=== PATIENT | female | born 1975 | race African-American/Black ===

== ENCOUNTER 2019-05-16 08:48 | Inpatient (IN) ==
[2019-05-16 10:20] LABS: Basophils % 1.3 % (0.0-0.8); Eosinophils # 0.1 10*3/uL (0.0-0.87); Eosinophils % 6.4 % (0.00-10.9); Hematocrit 29.3 VOL% (35.7-47.0); Immature Granulocytes % 1.3 %; Immature Granulocytes Absolute 0.01 #; Lymphocytes # 0.2 10*3/uL (1.4-4.0); Lymphocytes % 26.9 % (21.3-54.2); Mean Corpuscular HGB Conc 34.1 GM/DL (32-36); Mean Corpuscular Volume 78.3 FL (87-102); Mean Platelet Volume 9.8 FL (9.6-12.0); Monocytes % 2.6 % (1.7-12.7); Neutrophils % 61.5 % (38.7-73.9); Platelet Count 142 T/CUMM (130-400); Red Blood Count 3.74 MC/CUMM (3.8-5.5); Red Cell Distribution Width 17.3 % (9.3-17.3)
[2019-05-16 10:23] LABS: White Blood Count 0.8 T/CUMM (4-12)
[2019-05-16] MEDS ORDERED: CEFEPIME 1,000 MG in SODIUM CHLORIDE 0.9% 100 ML IV STA (10:26)
[2019-05-16 10:27] LABS: Apearance,Urine CLEAR (Clear); Bilirubin,Urine Negative (Negative); Blood, Urine Negative (Negative); Glucose,Urine (UA) Negative (Negative); Ketones,Urine Negative (Negative); Mucus,Urine Occasional /LPF (Occasional); Nitrite,Urine Negative (Negative); Protein,Urine Negative; Squamous Epithelial Cell,Urine Occasional /HPF (0-10); Urine Color Yellow (Yellow); Urine Specific Gravity 1.013 (1.001-1.035); Urine Urobilinogen < 2.0 EU/DL (0.2-1.0); WBC,Urine <1 /HPF (0-6)
[2019-05-16] MEDS ORDERED: AZITHROMYCIN 250 MG TABLET PO STA (10:27)
[2019-05-16 10:38] LABS: Albumin 3.1 G/DL (3.4-5.0); Bilirubin,Total 0.4 MG/DL (0.2-1.0); Calcium 8.8 MG/DL (8.5-10.1); Osmolality,Calculated 265.5 MOS/KG (273-304); Total Protein 7.1 G/DL (6.4-8.3)
[2019-05-16 10:39] LABS: Hypochromasia 1+; Lymphocytes 47 % (20-55); Platelet Estimate Adequate; Segmented Neutrophils 53 % (50-85); Total Cells Counted 100
[2019-05-16] MEDS: ENOXAPARIN 40 MG/0.4 ML SYRINGE SUBCUT SCH (14:56)
[2019-05-16] MEDS ORDERED: FILGRASTIM-SNDZ 480 MCG/0.8 ML SYRINGE SUBCUT ONE (15:00)
[2019-05-16] MEDS: CEFEPIME 1,000 MG in SODIUM CHLORIDE 0.9% 100 ML IV SCH ×2 (16:05→22:10)
[2019-05-16] MEDS: SODIUM CHLORIDE 0.9% 1,000 ML IV SCH (16:06)
[2019-05-16 16:37] LABS: Albumin 3.2 G/DL (3.4-5.0); Bilirubin,Direct 0.13 MG/DL (0.0-0.20); Bilirubin,Indirect 0.4 MG/DL (0.0-1.0); Bilirubin,Total 0.5 MG/DL (0.2-1.0); Ferritin 2332.5 ng/ml (8-252); Total Protein 7.2 G/DL (6.4-8.3)
[2019-05-16] MEDS ORDERED: BENZTROPINE 2 MG/2 ML AMP IV PRN (17:14)
[2019-05-16] MEDS ORDERED: chlorproMAZINE 25 MG TABLET PO PRN (17:14)
[2019-05-16] MEDS ORDERED: chlorproMAZINE INJ 50 MG in SODIUM CHLORIDE 0.9% 100 ML IV PRN (17:14)
[2019-05-16] MEDS ORDERED: LACTULOSE 20 GM/30 ML UDCUP PO PRN (17:14)
[2019-05-16] MEDS ORDERED: ALUMINUM/MAGNES/SIMETH MAX STR 30 ML UDCUP PO PRN (17:14)
[2019-05-16] MEDS ORDERED: diphenhydrAMINE CAP 25 MG CAPSULE PO PRN (17:14)
[2019-05-16] MEDS ORDERED: LOPERAMIDE 2 MG CAPSULE PO PRN ×2 (17:14)
[2019-05-16] MEDS ORDERED: MAGNESIUM HYDROXIDE SUSP 30 ML UDCUP PO PRN (17:14)
[2019-05-16] MEDS ORDERED: chlorproMAZINE INJ 25 MG in SODIUM CHLORIDE 0.9% 100 ML IV PRN (17:14)
[2019-05-16] MEDS ORDERED: TEMAZEPAM 7.5 MG CAPSULE PO PRN (17:14)
[2019-05-16] MEDS ORDERED: MYLANTA/LIDO VISC 2:1 300 ML BOTTLE SWISH/SPIT PRN (17:14)
[2019-05-16] MEDS ORDERED: MYLANTA/LIDO VISC 2:1 300 ML BOTTLE SWISH/SWAL PRN (17:14)
[2019-05-16] MEDS: ONDANSETRON 4 MG/2 ML VIAL IV PRN (18:36)
[2019-05-16] MEDS: traMADol 50 MG TABLET PO PRN (21:00)
[2019-05-16] MEDS ORDERED: FLUORIDE PO SCH (21:00)
[2019-05-16] MEDS: ACETAMINOPHEN 325 MG TABLET PO PRN (21:00)
[2019-05-17] MEDS: SODIUM CHLORIDE 0.9% 1,000 ML IV SCH ×3 (00:10→16:48)
[2019-05-17] MEDS: CEFEPIME 1,000 MG in SODIUM CHLORIDE 0.9% 100 ML IV SCH ×4 (04:01→21:18)
[2019-05-17 06:03] LABS: Basophils % 1.7 % (0.0-0.8); Eosinophils # 0.1 10*3/uL (0.0-0.87); Eosinophils % 12.1 % (0.00-10.9); Hemoglobin 8.6 GM/DL (12.0-16.0); Lymphocytes # 0.2 10*3/uL (1.4-4.0); Lymphocytes % 37.9 % (21.3-54.2); Mean Corpuscular HGB Conc 33.1 GM/DL (32-36); Mean Corpuscular Volume 79.3 FL (87-102); Mean Platelet Volume 10.4 FL (9.6-12.0); Monocytes % 3.4 % (1.7-12.7); Neutrophils % 44.9 % (38.7-73.9); Platelet Count 108 T/CUMM (130-400); Red Blood Count 3.28 MC/CUMM (3.8-5.5); Red Cell Distribution Width 17.2 % (9.3-17.3)
[2019-05-17 06:09] LABS: White Blood Count 0.6 T/CUMM (4-12)
[2019-05-17 06:31] LABS: Eosinophils 20 % (0-10); Lymphocytes 40 % (20-55); Segmented Neutrophils 40 % (50-85); Total Cells Counted 100
[2019-05-17 06:32] LABS: Anisocytosis 1+; Hypochromasia 1+; Ovalocytes Slight; Target Cells Slight
[2019-05-17 06:33] LABS: Platelet Estimate Decreased
[2019-05-17 06:36] LABS: Albumin 2.7 G/DL (3.4-5.0); Bilirubin,Total 0.4 MG/DL (0.2-1.0); Calcium 8.1 MG/DL (8.5-10.1); Osmolality,Calculated 265.4 MOS/KG (273-304); Total Protein 6.2 G/DL (6.4-8.3)
[2019-05-17] MEDS: AZITHROMYCIN 250 MG TABLET PO SCH (08:34)
[2019-05-17] MEDS: PANTOPRAZOLE 40 MG TABLET PO SCH (08:34)
[2019-05-17] MEDS: ACETAMINOPHEN 325 MG TABLET PO PRN ×3 (08:37→17:43)
[2019-05-17] MEDS: ENOXAPARIN 40 MG/0.4 ML SYRINGE SUBCUT SCH (14:53)
[2019-05-17] MEDS: FILGRASTIM-SNDZ 480 MCG/0.8 ML SYRINGE SUBCUT SCH (16:11)
[2019-05-17] MEDS: ZALEPLON 5 MG CAPSULE PO PRN (22:15)
[2019-05-18] MEDS: ACETAMINOPHEN 325 MG TABLET PO PRN ×3 (00:30→11:07)
[2019-05-18] MEDS: SODIUM CHLORIDE 0.9% 1,000 ML IV SCH ×2 (01:15→12:38)
[2019-05-18] MEDS: CEFEPIME 1,000 MG in SODIUM CHLORIDE 0.9% 100 ML IV SCH ×3 (03:15→15:29)
[2019-05-18] MEDS: ONDANSETRON 4 MG/2 ML VIAL IV PRN ×3 (04:30→17:07)
[2019-05-18 05:29] LABS: Basophils % 3.1 % (0.0-0.8); Eosinophils # 0.1 10*3/uL (0.0-0.87); Eosinophils % 21.9 % (0.00-10.9); Hemoglobin 11.5 GM/DL (12.0-16.0); Lymphocytes # 0.1 10*3/uL (1.4-4.0); Lymphocytes % 31.3 % (21.3-54.2); Mean Corpuscular HGB Conc 33.8 GM/DL (32-36); Mean Corpuscular Volume 77.3 FL (87-102); Mean Platelet Volume 10.8 FL (9.6-12.0); Monocytes % 9.4 % (1.7-12.7); Neutrophils % 34.3 % (38.7-73.9); Red Cell Distribution Width 17.4 % (9.3-17.3)
[2019-05-18 05:44] LABS: Calcium 8.1 MG/DL (8.5-10.1); Osmolality,Calculated 267.1 MOS/KG (273-304); White Blood Count 0.3 T/CUMM (4-12)
[2019-05-18 05:45] LABS: Platelet Count 42 T/CUMM (130-400)
[2019-05-18 06:04] LABS: Band Neutrophils 12 % (0-10); Eosinophils 40 % (0-10); Lymphocytes 16 % (20-55); Platelet Estimate Decreased; Segmented Neutrophils 16 % (50-85); Total Cells Counted 100
[2019-05-18 06:06] LABS: Anisocytosis 1+
[2019-05-18] MEDS: PANTOPRAZOLE 40 MG TABLET PO SCH (08:39)
[2019-05-18] MEDS: AZITHROMYCIN 250 MG TABLET PO SCH (08:39)
[2019-05-18] MEDS: FILGRASTIM-SNDZ 480 MCG/0.8 ML SYRINGE SUBCUT SCH (08:39)
[2019-05-18] MEDS: ALPRAZolam 0.25 MG TABLET PO PRN ×2 (10:19→17:58)
[2019-05-18] MEDS: ENOXAPARIN 40 MG/0.4 ML SYRINGE SUBCUT SCH (15:29)
[2019-05-18] MEDS: DICLOFENAC 1% GEL 100 GM TUBE TOP SCH ×2 (15:29→21:00)
[2019-05-18] MEDS: PROMETHAZINE INJ 25 MG in SODIUM CHLORIDE 0.9% 50 ML IV PRN (17:58)
[2019-05-19] MEDS: ALPRAZolam 0.25 MG TABLET PO PRN ×5 (00:10→21:40)
[2019-05-19] MEDS ORDERED: PROMETHAZINE 25 MG/1 ML VIAL IM PRN (01:20)
[2019-05-19] MEDS: SODIUM CHLORIDE 0.9% 1,000 ML IV SCH ×5 (04:52→23:16)
[2019-05-19] MEDS: CEFEPIME 1,000 MG in SODIUM CHLORIDE 0.9% 100 ML IV SCH ×5 (04:53→21:37)
[2019-05-19] MEDS: PANTOPRAZOLE 40 MG TABLET PO SCH (08:40)
[2019-05-19] MEDS: AZITHROMYCIN 250 MG TABLET PO SCH (08:40)
[2019-05-19] MEDS: ACETAMINOPHEN 325 MG TABLET PO PRN ×2 (08:41→21:40)
[2019-05-19] MEDS: FILGRASTIM-SNDZ 480 MCG/0.8 ML SYRINGE SUBCUT SCH (08:41)
[2019-05-19] MEDS: guaiFENesin 200 MG/10 ML UDCUP PO PRN (08:41)
[2019-05-19] MEDS: DICLOFENAC 1% GEL 100 GM TUBE TOP SCH ×3 (09:42→23:15)
[2019-05-19 11:44] LABS: Alanine Aminotransferase 18 U/L (13-56); Albumin 2.4 G/DL (3.4-5.0); Alkaline Phosphatase 60 U/L (45-117); Aspartate Amino Transferase 42 U/L (0-37); Bilirubin,Direct < 0.100 MG/DL (0.0-0.20); Bilirubin,Indirect 0.3 MG/DL (0.0-1.0); Bilirubin,Total < 0.39 MG/DL (0.2-1.0); Blood Urea Nitrogen 5 MG/DL (7-18); Calcium 7.9 MG/DL (8.5-10.1); Estimated Glom Filtration Rate 96 ML/MIN; Ferritin 1173.4 ng/ml (8-252); Glucose 101 MG/DL (74-106); Osmolality,Calculated 266.1 MOS/KG (273-304); Total Protein 6.2 G/DL (6.4-8.3)
[2019-05-19 12:33] LABS: Basophils % 1.4 % (0.0-0.8); Eosinophils # 0.1 10*3/uL (0.0-0.87); Eosinophils % 2.8 % (0.00-10.9); Hematocrit 22.1 VOL% (35.7-47.0); Hemoglobin 7.6 GM/DL (12.0-16.0); Immature Granulocytes % 5.9 %; Immature Granulocytes Absolute 0.17 #; Lymphocytes # 0.2 10*3/uL (1.4-4.0); Lymphocytes % 6.6 % (21.3-54.2); Mean Corpuscular HGB Conc 34.4 GM/DL (32-36); Mean Corpuscular Volume 77.3 FL (87-102); Monocytes % 7.3 % (1.7-12.7); Platelet Count 89 T/CUMM (130-400); Red Blood Count 2.86 MC/CUMM (3.8-5.5); Red Cell Distribution Width 17.5 % (9.3-17.3); White Blood Count 2.9 T/CUMM (4-12)
[2019-05-19 13:17] LABS: Band Neutrophils 3 % (0-10); Eosinophils 3 % (0-10); Hypersegmented Neutrophil Few; Lymphocytes 10 % (20-55); Platelet Estimate Decreased; Segmented Neutrophils 78 % (50-85); Total Cells Counted 102
[2019-05-19] MEDS: ZALEPLON 5 MG CAPSULE PO PRN (21:30)
[2019-05-20] MEDS: ACETAMINOPHEN 325 MG TABLET PO PRN ×4 (00:52→22:50)
[2019-05-20] MEDS: CEFEPIME 1,000 MG in SODIUM CHLORIDE 0.9% 100 ML IV SCH ×4 (05:44→20:00)
[2019-05-20 05:54] LABS: Basophils # 0.1 10*3/uL (0.0-0.2); Basophils % 1.2 % (0.0-0.8); Eosinophils # 0.1 10*3/uL (0.0-0.87); Eosinophils % 1.3 % (0.00-10.9); Hematocrit 23.3 VOL% (35.7-47.0); Hemoglobin 7.8 GM/DL (12.0-16.0); Immature Granulocytes % 8.3 %; Immature Granulocytes Absolute 0.56 #; Lymphocytes # 0.4 10*3/uL (1.4-4.0); Lymphocytes % 6.4 % (21.3-54.2); Mean Corpuscular HGB Conc 33.5 GM/DL (32-36); Mean Corpuscular Volume 78.2 FL (87-102); Mean Platelet Volume 10.3 FL (9.6-12.0); Monocytes % 5.8 % (1.7-12.7); Platelet Count 53 T/CUMM (130-400); Red Blood Count 2.98 MC/CUMM (3.8-5.5); Red Cell Distribution Width 17.9 % (9.3-17.3); White Blood Count 6.7 T/CUMM (4-12)
[2019-05-20 06:14] LABS: Alanine Aminotransferase 23 U/L (13-56); Albumin 2.3 G/DL (3.4-5.0); Alkaline Phosphatase 73 U/L (45-117); Aspartate Amino Transferase 33 U/L (0-37); Bilirubin,Total < 0.39 MG/DL (0.2-1.0); Blood Urea Nitrogen 5 MG/DL (7-18); Calcium 7.9 MG/DL (8.5-10.1); Estimated Glom Filtration Rate 96 ML/MIN; Glucose 83 MG/DL (74-106)
[2019-05-20 06:58] LABS: Anisocytosis 1+; Band Neutrophils 11 % (0-10); Eosinophils 3 % (0-10); Lymphocytes 5 % (20-55); Nucleated Red Blood Cells 1 (0-5); Segmented Neutrophils 74 % (50-85); Total Cells Counted 100
[2019-05-20 06:59] LABS: Hypochromasia 1+; Platelet Estimate Decreased; Target Cells 1+
[2019-05-20] MEDS: SODIUM CHLORIDE 0.9% 1,000 ML IV SCH ×3 (08:52→22:48)
[2019-05-20 09:07] LABS: Troponin I 0.042 NG/ML (0.00-0.045)
[2019-05-20] MEDS: ALPRAZolam 0.25 MG TABLET PO PRN ×3 (09:55→20:00)
[2019-05-20] MEDS: guaiFENesin 200 MG/10 ML UDCUP PO PRN ×2 (09:55→20:00)
[2019-05-20] MEDS: PANTOPRAZOLE 40 MG TABLET PO SCH (09:55)
[2019-05-20] MEDS: DICLOFENAC 1% GEL 100 GM TUBE TOP SCH ×3 (09:55→20:00)
[2019-05-20] MEDS: AZITHROMYCIN 250 MG TABLET PO SCH (09:55)
[2019-05-20] MEDS: ZINC SULFATE 220 MG CAPSULE PO SCH (14:52)
[2019-05-20] MEDS: HYDROXYCHLOROQUINE 200 MG TABLET PO SCH (14:52)
[2019-05-20] MEDS: ONDANSETRON 4 MG/2 ML VIAL IV PRN (17:25)
[2019-05-20] MEDS: PROMETHAZINE INJ 25 MG in SODIUM CHLORIDE 0.9% 50 ML IV PRN (18:15)
[2019-05-21] MEDS: guaiFENesin 200 MG/10 ML UDCUP PO PRN ×4 (00:59→22:07)
[2019-05-21] MEDS: CEFEPIME 1,000 MG in SODIUM CHLORIDE 0.9% 100 ML IV SCH ×4 (02:48→20:30)
[2019-05-21] MEDS: ACETAMINOPHEN 325 MG TABLET PO PRN ×3 (04:40→17:30)
[2019-05-21] MEDS: SODIUM CHLORIDE 0.9% 1,000 ML IV SCH ×3 (06:37→22:07)
[2019-05-21] MEDS: PANTOPRAZOLE 40 MG TABLET PO SCH (09:30)
[2019-05-21] MEDS: ALPRAZolam 0.25 MG TABLET PO PRN (09:30)
[2019-05-21] MEDS: HYDROXYCHLOROQUINE 200 MG TABLET PO SCH (09:30)
[2019-05-21] MEDS: DICLOFENAC 1% GEL 100 GM TUBE TOP SCH ×3 (10:29→22:06)
[2019-05-21] MEDS: AZITHROMYCIN 250 MG TABLET PO SCH (10:29)
[2019-05-21] MEDS ORDERED: HYDROXYCHLOROQUINE 200 MG TABLET PO SCH (21:00)
[2019-05-21] MEDS: ZALEPLON 5 MG CAPSULE PO PRN (22:06)
[2019-05-22] MEDS: ONDANSETRON 4 MG/2 ML VIAL IV PRN ×3 (00:40→18:30)
[2019-05-22] MEDS: ACETAMINOPHEN 325 MG TABLET PO PRN ×2 (00:40→09:50)
[2019-05-22] MEDS: guaiFENesin 200 MG/10 ML UDCUP PO PRN ×3 (01:54→15:23)
[2019-05-22] MEDS: CEFEPIME 1,000 MG in SODIUM CHLORIDE 0.9% 100 ML IV SCH ×4 (02:36→21:30)
[2019-05-22] MEDS: SODIUM CHLORIDE 0.9% 1,000 ML IV SCH ×2 (07:05→17:04)
[2019-05-22] MEDS: PANTOPRAZOLE 40 MG TABLET PO SCH (09:49)
[2019-05-22] MEDS: AZITHROMYCIN 250 MG TABLET PO SCH (09:50)
[2019-05-22 12:30] LABS: Basophils % 0.2 % (0.0-0.8); Eosinophils # 0.1 10*3/uL (0.0-0.87); Eosinophils % 0.8 % (0.00-10.9); Hematocrit 20.2 VOL% (35.7-47.0); Hemoglobin 6.8 GM/DL (12.0-16.0); Immature Granulocytes % 7.2 %; Immature Granulocytes Absolute 0.45 #; Lymphocytes # 0.4 10*3/uL (1.4-4.0); Lymphocytes % 5.6 % (21.3-54.2); Mean Corpuscular HGB Conc 33.7 GM/DL (32-36); Mean Corpuscular Volume 78.9 FL (87-102); Mean Platelet Volume 12.4 FL (9.6-12.0); Monocytes % 7.9 % (1.7-12.7); NRBC # 0.03 10*3/uL; Neutrophils % 78.3 % (38.7-73.9); Platelet Count 109 T/CUMM (130-400); Red Blood Count 2.56 MC/CUMM (3.8-5.5); Red Cell Distribution Width 17.9 % (9.3-17.3); White Blood Count 6.2 T/CUMM (4-12)
[2019-05-22 12:49] LABS: Alanine Aminotransferase 75 U/L (13-56); Albumin 2.1 G/DL (3.4-5.0); Alkaline Phosphatase 86 U/L (45-117); Aspartate Amino Transferase 89 U/L (0-37); Bilirubin,Total < 0.39 MG/DL (0.2-1.0); Blood Urea Nitrogen 4 MG/DL (7-18); Calcium 7.4 MG/DL (8.5-10.1); Estimated Glom Filtration Rate 110 ML/MIN; Glucose 87 MG/DL (74-106); Osmolality,Calculated 272.5 MOS/KG (273-304); Total Protein 5.8 G/DL (6.4-8.3)
[2019-05-22] MEDS: DICLOFENAC 1% GEL 100 GM TUBE TOP SCH ×3 (13:18→21:30)
[2019-05-22] MEDS: ZINC SULFATE 220 MG CAPSULE PO SCH (15:23)
[2019-05-22] MEDS: traMADol 50 MG TABLET PO PRN (15:23)
[2019-05-22 17:06] LABS: Band Neutrophils 9 % (0-10); Lymphocytes 7 % (20-55); Microcytosis 1+; Platelet Estimate Adequate; Segmented Neutrophils 78 % (50-85); Total Cells Counted 100
[2019-05-22] MEDS: ALPRAZolam 0.25 MG TABLET PO PRN (20:15)
[2019-05-22] MEDS: ZALEPLON 5 MG CAPSULE PO PRN (22:30)
[2019-05-23] MEDS: SODIUM CHLORIDE 0.9% 1,000 ML IV SCH ×3 (00:30→14:15)
[2019-05-23] MEDS: ACETAMINOPHEN 325 MG TABLET PO PRN ×4 (03:55→23:56)
[2019-05-23] MEDS: ALPRAZolam 0.25 MG TABLET PO PRN ×3 (03:55→20:24)
[2019-05-23] MEDS: ONDANSETRON 4 MG/2 ML VIAL IV PRN ×3 (04:30→20:24)
[2019-05-23] MEDS: CEFEPIME 1,000 MG in SODIUM CHLORIDE 0.9% 100 ML IV SCH ×4 (06:04→20:24)
[2019-05-23] MEDS: DICLOFENAC 1% GEL 100 GM TUBE TOP SCH ×3 (08:04→20:24)
[2019-05-23] MEDS: PANTOPRAZOLE 40 MG TABLET PO SCH (08:04)
[2019-05-23 09:14] LABS: Calcium 8.3 MG/DL (8.5-10.1); Osmolality,Calculated 269.8 MOS/KG (273-304)
[2019-05-23 09:27] LABS: Basophils % 0.1 % (0.0-0.8); Eosinophils % 0.4 % (0.00-10.9); Immature Granulocytes % 6.2 %; Immature Granulocytes Absolute 0.45 #; Lymphocytes # 0.4 10*3/uL (1.4-4.0); Lymphocytes % 5.8 % (21.3-54.2); Mean Corpuscular Volume 76.2 FL (87-102); Mean Platelet Volume 11.9 FL (9.6-12.0); Monocytes % 9.8 % (1.7-12.7); NRBC # 0.02 10*3/uL; Neutrophils % 77.7 % (38.7-73.9); Platelet Count 133 T/CUMM (130-400); Red Cell Distribution Width 17.9 % (9.3-17.3); White Blood Count 7.2 T/CUMM (4-12)
[2019-05-23 09:38] LABS: Hemoglobin 5.6 GM/DL (12.0-16.0)
[2019-05-23 09:43] LABS: Anisocytosis 1+; Band Neutrophils 11 % (0-10); Lymphocytes 6 % (20-55); Metamyelocytes 2 %; Myelocytes 1 %; Platelet Estimate Adequate; Poikilocytosis Slight; Segmented Neutrophils 73 % (50-85); Total Cells Counted 100
[2019-05-23] MEDS ORDERED: SODIUM CHLORIDE 0.9% 1,000 ML IV PRN ×2 (09:59→10:00)
[2019-05-24 01:24] LABS: Hematocrit 29.2 VOL% (35.7-47.0); Hemoglobin 9.8 GM/DL (12.0-16.0)
[2019-05-24] MEDS: ONDANSETRON 4 MG/2 ML VIAL IV PRN (03:10)
[2019-05-24] MEDS ORDERED: ETOMIDATE 20 MG/10 ML VIAL IV ONE ×2 (04:45→05:10)
[2019-05-24] MEDS ORDERED: SUCCINYLCHOLINE 200 MG/10 ML VIAL ONE (04:46)
[2019-05-24] MEDS ORDERED: SUCCINYLCHOLINE 200 MG/10 ML VIAL IV ONE ×3 (05:12→08:08)
[2019-05-24] MEDS ORDERED: MIDAZOLAM 2 MG/2 ML VIAL IV ONE (05:27)
[2019-05-24] MEDS ORDERED: MIDAZOLAM 10 MG/2 ML VIAL ONE (05:29)
[2019-05-24] MEDS ORDERED: fentaNYL 100 MCG/2 ML VIAL IV ONE (05:30)
[2019-05-24] MEDS ORDERED: ROCURONIUM 100 MG/10 ML VIAL IV ONE ×2 (06:00)
[2019-05-24 06:10] LABS: ABG Base Excess -7.5 MMOL/L (-2.5-2.5); ABG HCO3 18.2 MMOL/L (20-26); ABG Oxygen Saturation 88.7 % (95-100); ABG PCO2 30.6 MM HG (35-48); ABG PH 7.355 (7.35-7.45); ABG PO2 60.7 MM HG (80-95); ABG TCO2 15.5 MMOL/L (23-27)
[2019-05-24] MEDS: fentaNYL INJ 1,250 MCG in SODIUM CHLORIDE 0.9% 225 ML IV PRN (06:12)
[2019-05-24] MEDS: ROCURONIUM 500 MG in SODIUM CHLORIDE 0.9% 500 ML IV SCH (06:14)
[2019-05-24] MEDS: MIDAZOLAM 100 MG in SODIUM CHLORIDE 0.9% 80 ML IV PRN (06:15)
[2019-05-24 07:31] LABS: Basophils % 0.1 % (0.0-0.8); Eosinophils % 0.1 % (0.00-10.9); Hematocrit 27.4 VOL% (35.7-47.0); Hemoglobin 9.4 GM/DL (12.0-16.0); Immature Granulocytes % 4.4 %; Immature Granulocytes Absolute 0.41 #; Lymphocytes # 0.3 10*3/uL (1.4-4.0); Lymphocytes % 2.7 % (21.3-54.2); Mean Corpuscular HGB Conc 34.3 GM/DL (32-36); Mean Corpuscular Volume 78.7 FL (87-102); Mean Platelet Volume 11.6 FL (9.6-12.0); Monocytes % 5.4 % (1.7-12.7); NRBC # 0.02 10*3/uL; Neutrophils % 87.3 % (38.7-73.9); Platelet Count 162 T/CUMM (130-400); Red Blood Count 3.48 MC/CUMM (3.8-5.5); Red Cell Distribution Width 17.7 % (9.3-17.3); White Blood Count 9.2 T/CUMM (4-12)
[2019-05-24 07:42] LABS: Band Neutrophils 2 % (0-10); Hypochromasia 1+; Lymphocytes 5 % (20-55); Platelet Estimate Adequate; Segmented Neutrophils 86 % (50-85); Total Cells Counted 100
[2019-05-24 07:43] LABS: Microcytosis Slight; Ovalocytes Slight
[2019-05-24 07:47] LABS: Calcium 8.1 MG/DL (8.5-10.1); Osmolality,Calculated 272.7 MOS/KG (273-304)
[2019-05-24] MEDS: SODIUM CHLORIDE 0.9% 1,000 ML IV SCH ×2 (08:30→11:46)
[2019-05-24 09:06] LABS: ABG Base Excess -5.5 MMOL/L (-2.5-2.5); ABG HCO3 19.9 MMOL/L (20-26); ABG Oxygen Saturation 99.8 % (95-100); ABG PCO2 21.8 MM HG (35-48); ABG PH 7.487 (7.35-7.45); ABG TCO2 14.9 MMOL/L (23-27); Allen Test Positive; Pt O2 Delivery Device Ventilator
[2019-05-24] MEDS ORDERED: FUROSEMIDE 40 MG/4 ML VIAL IV ONE (09:12)
[2019-05-24] MEDS ORDERED: DIGOXIN 0.5 MG/2 ML AMP IV ONE (10:34)
[2019-05-24] MEDS: PANTOPRAZOLE 40 MG VIAL IV SCH (11:08)
[2019-05-24] MEDS: ACETAMINOPHEN 325 MG TABLET PO PRN (11:08)
[2019-05-24] MEDS: ENOXAPARIN 80 MG/0.8 ML SYRINGE SUBCUT SCH ×2 (11:08→21:16)
[2019-05-24] MEDS: methylPREDNISolone SOD SUC 125 MG/2 ML VIAL IV SCH ×2 (11:10→21:17)
[2019-05-24] MEDS: PIPERACILLIN/TAZOBACTAM 3,375 MG in SODIUM CHLORIDE 0.9% 100 ML IV SCH ×2 (11:15→18:08)
[2019-05-24] MEDS: DICLOFENAC 1% GEL 100 GM TUBE TOP SCH ×3 (11:43→21:16)
[2019-05-24] MEDS: DIGOXIN 0.5 MG/2 ML AMP IV SCH ×2 (14:08→18:11)
[2019-05-24] MEDS: ZINC SULFATE 220 MG CAPSULE PO SCH (15:57)
[2019-05-25] MEDS: PIPERACILLIN/TAZOBACTAM 3,375 MG in SODIUM CHLORIDE 0.9% 100 ML IV SCH ×3 (02:11→17:57)
[2019-05-25 05:23] LABS: Basophils % 0.2 % (0.0-0.8); Hematocrit 27.4 VOL% (35.7-47.0); Hemoglobin 9.4 GM/DL (12.0-16.0); Immature Granulocytes % 1.7 %; Immature Granulocytes Absolute 0.16 #; Lymphocytes # 0.3 10*3/uL (1.4-4.0); Lymphocytes % 2.7 % (21.3-54.2); Mean Corpuscular HGB Conc 34.3 GM/DL (32-36); Mean Platelet Volume 12.3 FL (9.6-12.0); Monocytes % 3.6 % (1.7-12.7); NRBC # 0.02 10*3/uL; Neutrophils % 91.8 % (38.7-73.9); Platelet Count 150 T/CUMM (130-400); Red Blood Count 3.47 MC/CUMM (3.8-5.5); Red Cell Distribution Width 17.7 % (9.3-17.3); White Blood Count 9.6 T/CUMM (4-12)
[2019-05-25 05:37] LABS: Calcium 8.4 MG/DL (8.5-10.1); Osmolality,Calculated 282.3 MOS/KG (273-304)
[2019-05-25 05:42] LABS: Band Neutrophils 2 % (0-10); Hypochromasia 1+; Lymphocytes 3 % (20-55); Myelocytes 1 %; Segmented Neutrophils 91 % (50-85); Total Cells Counted 100
[2019-05-25 05:43] LABS: Acanthocytes Few; Microcytosis 1+; Ovalocytes Slight; Platelet Estimate Adequate
[2019-05-25] MEDS: ROCURONIUM 500 MG in SODIUM CHLORIDE 0.9% 500 ML IV SCH (05:47)
[2019-05-25] MEDS ORDERED: GLUCAGON 1 MG VIAL IM PRN (08:08)
[2019-05-25] MEDS ORDERED: DEXTROSE 10% 250 ML BAG IV PRN (08:08)
[2019-05-25] MEDS: methylPREDNISolone SOD SUC 125 MG/2 ML VIAL IV SCH ×2 (09:50→20:30)
[2019-05-25] MEDS: PANTOPRAZOLE 40 MG VIAL IV SCH (10:26)
[2019-05-25] MEDS: ENOXAPARIN 80 MG/0.8 ML SYRINGE SUBCUT SCH ×2 (10:32→20:24)
[2019-05-25] MEDS: DICLOFENAC 1% GEL 100 GM TUBE TOP SCH ×3 (12:06→21:10)
[2019-05-25] MEDS: fentaNYL INJ 1,250 MCG in SODIUM CHLORIDE 0.9% 225 ML IV PRN (19:00)
[2019-05-25] MEDS: MINERAL OIL/PETROLATUM OPH OINT 3.5 GM TUBE BOTH EYES SCH (20:24)
[2019-05-26] MEDS: PIPERACILLIN/TAZOBACTAM 3,375 MG in SODIUM CHLORIDE 0.9% 100 ML IV SCH ×3 (00:40→17:45)
[2019-05-26] MEDS: fentaNYL INJ 1,250 MCG in SODIUM CHLORIDE 0.9% 225 ML IV PRN ×2 (02:34→19:01)
[2019-05-26] MEDS: ACETAMINOPHEN 325 MG TABLET PO PRN (03:15)
[2019-05-26 04:06] LABS: Basophils % 0.1 % (0.0-0.8); Hematocrit 26.3 VOL% (35.7-47.0); Hemoglobin 8.8 GM/DL (12.0-16.0); Immature Granulocytes % 1.5 %; Immature Granulocytes Absolute 0.19 #; Lymphocytes # 0.1 10*3/uL (1.4-4.0); Lymphocytes % 0.8 % (21.3-54.2); Mean Corpuscular HGB Conc 33.5 GM/DL (32-36); Mean Corpuscular Volume 80.7 FL (87-102); Mean Platelet Volume 12.4 FL (9.6-12.0); Monocytes % 3.5 % (1.7-12.7); NRBC # 0.04 10*3/uL; Neutrophils % 94.1 % (38.7-73.9); Platelet Count 223 T/CUMM (130-400); Red Blood Count 3.26 MC/CUMM (3.8-5.5); Red Cell Distribution Width 17.7 % (9.3-17.3); White Blood Count 12.7 T/CUMM (4-12)
[2019-05-26 04:23] LABS: Calcium 8.3 MG/DL (8.5-10.1); Osmolality,Calculated 289.1 MOS/KG (273-304)
[2019-05-26 05:11] LABS: ABG Base Excess -3.1 MMOL/L (-2.5-2.5); ABG HCO3 19.9 MMOL/L (20-26); ABG Oxygen Saturation 97.8 % (95-100); ABG PCO2 28.2 MM HG (35-48); ABG PH 7.466 (7.35-7.45); ABG PO2 122.6 MM HG (80-95); ABG TCO2 20.7 MMOL/L (23-27); Allen Test Positive; Pt O2 Delivery Device Ventilator
[2019-05-26 05:29] LABS: Band Neutrophils 2 % (0-10); Hypochromasia 2+; Lymphocytes 1 % (20-55); Platelet Estimate Normal; Segmented Neutrophils 95 % (50-85); Target Cells 1+; Total Cells Counted 100
[2019-05-26] MEDS: ROCURONIUM 500 MG in SODIUM CHLORIDE 0.9% 500 ML IV SCH (05:57)
[2019-05-26] MEDS: PANTOPRAZOLE 40 MG VIAL IV SCH (09:50)
[2019-05-26] MEDS: methylPREDNISolone SOD SUC 125 MG/2 ML VIAL IV SCH ×2 (09:50→21:41)
[2019-05-26] MEDS: ENOXAPARIN 80 MG/0.8 ML SYRINGE SUBCUT SCH ×2 (09:50→21:41)
[2019-05-26] MEDS: DICLOFENAC 1% GEL 100 GM TUBE TOP SCH ×2 (18:12→21:44)
[2019-05-26] MEDS: MINERAL OIL/PETROLATUM OPH OINT 3.5 GM TUBE BOTH EYES SCH (21:41)
[2019-05-27] MEDS: PIPERACILLIN/TAZOBACTAM 3,375 MG in SODIUM CHLORIDE 0.9% 100 ML IV SCH ×3 (00:57→18:11)
[2019-05-27 03:46] LABS: ABG Base Excess -1.7 MMOL/L (-2.5-2.5); ABG HCO3 21.8 MMOL/L (20-26); ABG Oxygen Saturation 97.1 % (95-100); ABG PH 7.452 (7.35-7.45); ABG PO2 99.7 MM HG (80-95); ABG TCO2 22.8 MMOL/L (23-27); Allen Test Negative; Pt O2 Delivery Device Ventilator
[2019-05-27 05:44] LABS: Basophils % 0.1 % (0.0-0.8); Hematocrit 22.6 VOL% (35.7-47.0); Hemoglobin 7.4 GM/DL (12.0-16.0); Immature Granulocytes % 1.2 %; Immature Granulocytes Absolute 0.13 #; Lymphocytes # 0.1 10*3/uL (1.4-4.0); Lymphocytes % 0.9 % (21.3-54.2); Mean Corpuscular HGB Conc 32.7 GM/DL (32-36); Mean Corpuscular Volume 82.5 FL (87-102); Mean Platelet Volume 11.5 FL (9.6-12.0); Monocytes % 2.4 % (1.7-12.7); NRBC # 0.02 10*3/uL; Neutrophils % 95.4 % (38.7-73.9); Platelet Count 267 T/CUMM (130-400); Red Blood Count 2.74 MC/CUMM (3.8-5.5); Red Cell Distribution Width 18.1 % (9.3-17.3); White Blood Count 10.8 T/CUMM (4-12)
[2019-05-27 06:14] LABS: Hypochromasia 1+; Lymphocytes 2 % (20-55); Microcytosis 1+; Segmented Neutrophils 97 % (50-85); Target Cells Few; Total Cells Counted 100
[2019-05-27 06:15] LABS: Ovalocytes Slight; Platelet Estimate Normal
[2019-05-27 06:17] LABS: Calcium 8.3 MG/DL (8.5-10.1); Osmolality,Calculated 301.3 MOS/KG (273-304)
[2019-05-27] MEDS: ROCURONIUM 500 MG in SODIUM CHLORIDE 0.9% 500 ML IV SCH (06:50)
[2019-05-27] MEDS: PANTOPRAZOLE 40 MG VIAL IV SCH (08:54)
[2019-05-27] MEDS: methylPREDNISolone SOD SUC 125 MG/2 ML VIAL IV SCH (08:54)
[2019-05-27] MEDS: LACTATED RINGERS 1,000 ML IV SCH ×2 (09:02→21:24)
[2019-05-27] MEDS: DICLOFENAC 1% GEL 100 GM TUBE TOP SCH ×3 (09:20→21:27)
[2019-05-27] MEDS: ACETAMINOPHEN 325 MG TABLET PO PRN (09:24)
[2019-05-27] MEDS: fentaNYL INJ 1,250 MCG in SODIUM CHLORIDE 0.9% 225 ML IV PRN (10:57)
[2019-05-27] MEDS: methylPREDNISolone SOD SUC 40 MG/1 ML VIAL IV SCH (18:11)
[2019-05-27] MEDS: LEVOFLOXACIN INJ 750 MG in PREMIX 1 EACH IV SCH (21:26)
[2019-05-27] MEDS: MINERAL OIL/PETROLATUM OPH OINT 3.5 GM TUBE BOTH EYES SCH (21:26)
[2019-05-27] MEDS: ENOXAPARIN 80 MG/0.8 ML SYRINGE SUBCUT SCH (21:26)
[2019-05-28] MEDS: fentaNYL INJ 1,250 MCG in SODIUM CHLORIDE 0.9% 225 ML IV PRN ×3 (00:58→20:55)
[2019-05-28] MEDS: methylPREDNISolone SOD SUC 40 MG/1 ML VIAL IV SCH ×3 (01:18→17:37)
[2019-05-28] MEDS: LACTATED RINGERS 1,000 ML IV SCH ×4 (03:20→22:00)
[2019-05-28 03:56] LABS: ABG Base Excess -0.9 MMOL/L (-2.5-2.5); ABG HCO3 23.7 MMOL/L (20-26); ABG Oxygen Saturation 96.8 % (95-100); ABG PH 7.411 (7.35-7.45); ABG PO2 85.4 MM HG (80-95); ABG TCO2 21.9 MMOL/L (23-27); Allen Test Positive; Pt O2 Delivery Device Ventilator
[2019-05-28 04:25] LABS: Basophils % 0.1 % (0.0-0.8); Hematocrit 23.8 VOL% (35.7-47.0); Hemoglobin 7.6 GM/DL (12.0-16.0); Immature Granulocytes % 0.9 %; Immature Granulocytes Absolute 0.15 #; Lymphocytes # 0.1 10*3/uL (1.4-4.0); Lymphocytes % 0.8 % (21.3-54.2); Mean Corpuscular HGB Conc 31.9 GM/DL (32-36); Mean Corpuscular Volume 83.8 FL (87-102); Mean Platelet Volume 11.4 FL (9.6-12.0); Monocytes % 3.7 % (1.7-12.7); Neutrophils % 94.5 % (38.7-73.9); Platelet Count 314 T/CUMM (130-400); Red Blood Count 2.84 MC/CUMM (3.8-5.5); Red Cell Distribution Width 18.7 % (9.3-17.3)
[2019-05-28 04:32] LABS: Calcium 7.9 MG/DL (8.5-10.1); Osmolality,Calculated 311.9 MOS/KG (273-304)
[2019-05-28 05:44] LABS: Band Neutrophils 1 % (0-10); Lymphocytes 2 % (20-55); Segmented Neutrophils 94 % (50-85); Total Cells Counted 100
[2019-05-28 05:45] LABS: Hypochromasia 1+; Microcytosis 1+; Platelet Estimate Normal; Target Cells Slight
[2019-05-28] MEDS: ROCURONIUM 500 MG in SODIUM CHLORIDE 0.9% 500 ML IV SCH (06:00)
[2019-05-28] MEDS: PANTOPRAZOLE 40 MG VIAL IV SCH (08:47)
[2019-05-28] MEDS: DICLOFENAC 1% GEL 100 GM TUBE TOP SCH ×3 (08:47→20:06)
[2019-05-28] MEDS ORDERED: DIGOXIN 0.5 MG/2 ML AMP IV ONE ×2 (09:10→09:40)
[2019-05-28] MEDS: INSULIN REGULAR 100 UNIT/ML SUBCUT SCH ×2 (12:23→17:39)
[2019-05-28] MEDS: ACETAMINOPHEN 325 MG TABLET PO PRN (13:42)
[2019-05-28] MEDS: MINERAL OIL/PETROLATUM OPH OINT 3.5 GM TUBE BOTH EYES SCH (20:05)
[2019-05-28] MEDS: ENOXAPARIN 80 MG/0.8 ML SYRINGE SUBCUT SCH (20:05)
[2019-05-29] MEDS: INSULIN REGULAR 100 UNIT/ML SUBCUT SCH ×4 (00:30→17:40)
[2019-05-29] MEDS: methylPREDNISolone SOD SUC 40 MG/1 ML VIAL IV SCH ×3 (00:35→16:55)
[2019-05-29] MEDS: LACTATED RINGERS 1,000 ML IV SCH ×3 (02:13→21:54)
[2019-05-29 03:48] LABS: ABG Base Excess 1.2 MMOL/L (-2.5-2.5); ABG HCO3 25.5 MMOL/L (20-26); ABG Oxygen Saturation 93.9 % (95-100); ABG PCO2 42.6 MM HG (35-48); ABG PH 7.397 (7.35-7.45); ABG PO2 69.4 MM HG (80-95); ABG TCO2 24.7 MMOL/L (23-27); Allen Test Positive; Pt O2 Delivery Device Ventilator
[2019-05-29 05:02] LABS: Basophils % 0.1 % (0.0-0.8); Hematocrit 22.7 VOL% (35.7-47.0); Hemoglobin 7.1 GM/DL (12.0-16.0); Immature Granulocytes % 1.3 %; Lymphocytes # 0.2 10*3/uL (1.4-4.0); Mean Corpuscular HGB Conc 31.3 GM/DL (32-36); Mean Platelet Volume 11.5 FL (9.6-12.0); Monocytes % 3.3 % (1.7-12.7); Neutrophils % 94.3 % (38.7-73.9); Platelet Count 375 T/CUMM (130-400); Red Blood Count 2.64 MC/CUMM (3.8-5.5); Red Cell Distribution Width 18.8 % (9.3-17.3); White Blood Count 15.4 T/CUMM (4-12)
[2019-05-29 05:12] LABS: Calcium 8.5 MG/DL (8.5-10.1); Osmolality,Calculated 309.7 MOS/KG (273-304)
[2019-05-29] MEDS: ROCURONIUM 500 MG in SODIUM CHLORIDE 0.9% 500 ML IV SCH (05:29)
[2019-05-29 06:01] LABS: Band Neutrophils 2 % (0-10); Hypochromasia 1+; Lymphocytes 1 % (20-55); Segmented Neutrophils 96 % (50-85); Total Cells Counted 100
[2019-05-29 06:02] LABS: Microcytosis 1+; Ovalocytes Slight; Platelet Estimate Normal; Target Cells Slight
[2019-05-29] MEDS: fentaNYL INJ 1,250 MCG in SODIUM CHLORIDE 0.9% 225 ML IV PRN ×3 (06:38→23:10)
[2019-05-29] MEDS: PANTOPRAZOLE 40 MG VIAL IV SCH (09:01)
[2019-05-29] MEDS: DICLOFENAC 1% GEL 100 GM TUBE TOP SCH ×3 (09:02→20:51)
[2019-05-29] MEDS ORDERED: VANCOMYCIN INJ 1,250 MG in SODIUM CHLORIDE 0.9% 250 ML IV ONE (10:30)
[2019-05-29] MEDS: ACETAMINOPHEN 325 MG TABLET PO PRN ×2 (12:40→17:42)
[2019-05-29] MEDS: MIDAZOLAM 100 MG in SODIUM CHLORIDE 0.9% 80 ML IV PRN (13:36)
[2019-05-29] MEDS ORDERED: HYDROmorphone INJ 50 MG in SODIUM CHLORIDE 0.9% 45 ML IV SCH (14:00)
[2019-05-29] MEDS ORDERED: VANCOMYCIN INJ 1,250 MG in SODIUM CHLORIDE 0.9% 250 ML IV PRN (15:08)
[2019-05-29] MEDS: MINERAL OIL/PETROLATUM OPH OINT 3.5 GM TUBE BOTH EYES SCH (20:51)
[2019-05-29] MEDS: ENOXAPARIN 80 MG/0.8 ML SYRINGE SUBCUT SCH (20:51)
[2019-05-29] MEDS: LEVOFLOXACIN INJ 750 MG in PREMIX 1 EACH IV SCH (21:44)
[2019-05-30] MEDS: INSULIN REGULAR 100 UNIT/ML SUBCUT SCH ×4 (00:32→18:07)
[2019-05-30] MEDS: methylPREDNISolone SOD SUC 40 MG/1 ML VIAL IV SCH ×3 (01:00→18:07)
[2019-05-30] MEDS: LACTATED RINGERS 1,000 ML IV SCH ×3 (01:03→23:22)
[2019-05-30] MEDS: ROCURONIUM 500 MG in SODIUM CHLORIDE 0.9% 500 ML IV SCH (05:50)
[2019-05-30 05:54] LABS: Basophils % 0.1 % (0.0-0.8); Eosinophils % 0.2 % (0.00-10.9); Hemoglobin 7.2 GM/DL (12.0-16.0); Immature Granulocytes % 1.2 %; Immature Granulocytes Absolute 0.18 #; Lymphocytes # 0.2 10*3/uL (1.4-4.0); Lymphocytes % 1.6 % (21.3-54.2); Mean Corpuscular HGB Conc 31.3 GM/DL (32-36); Mean Corpuscular Volume 86.1 FL (87-102); Mean Platelet Volume 11.2 FL (9.6-12.0); Monocytes % 4.5 % (1.7-12.7); NRBC # 0.02 10*3/uL; Neutrophils % 92.4 % (38.7-73.9); Platelet Count 398 T/CUMM (130-400); Red Blood Count 2.67 MC/CUMM (3.8-5.5); Red Cell Distribution Width 18.6 % (9.3-17.3); White Blood Count 15.2 T/CUMM (4-12)
[2019-05-30 06:07] LABS: Calcium 8.7 MG/DL (8.5-10.1); Osmolality,Calculated 308.9 MOS/KG (273-304)
[2019-05-30 06:18] LABS: Band Neutrophils 1 % (0-10); Hypochromasia 2+; Lymphocytes 1 % (20-55); Platelet Estimate Adequate; Segmented Neutrophils 93 % (50-85); Total Cells Counted 100
[2019-05-30 06:19] LABS: Microcytosis 1+; Ovalocytes Slight
[2019-05-30] MEDS: PANTOPRAZOLE 40 MG VIAL IV SCH (08:16)
[2019-05-30] MEDS: ACETAMINOPHEN 325 MG TABLET PO PRN (09:15)
[2019-05-30] MEDS: HYDROmorphone INJ 50 MG in SODIUM CHLORIDE 0.9% 45 ML IV PRN ×2 (09:15→23:48)
[2019-05-30] MEDS ORDERED: HYDROmorphone 2 MG/1 ML VIAL IV STA (09:17)
[2019-05-30] MEDS: DICLOFENAC 1% GEL 100 GM TUBE TOP SCH ×3 (09:25→22:17)
[2019-05-30] MEDS: VANCOMYCIN INJ 1,250 MG in SODIUM CHLORIDE 0.9% 250 ML IV SCH (16:15)
[2019-05-30] MEDS: MINERAL OIL/PETROLATUM OPH OINT 3.5 GM TUBE BOTH EYES SCH (22:17)
[2019-05-30] MEDS: ENOXAPARIN 80 MG/0.8 ML SYRINGE SUBCUT SCH (22:17)
[2019-05-31] MEDS: INSULIN REGULAR 100 UNIT/ML SUBCUT SCH ×4 (00:56→18:21)
[2019-05-31] MEDS: methylPREDNISolone SOD SUC 40 MG/1 ML VIAL IV SCH ×3 (02:46→17:52)
[2019-05-31 04:28] LABS: ABG Base Excess 3.5 MMOL/L (-2.5-2.5); ABG HCO3 27.6 MMOL/L (20-26); ABG Oxygen Saturation 98.4 % (95-100); ABG PCO2 48.5 MM HG (35-48); ABG PH 7.385 (7.35-7.45); ABG TCO2 27.4 MMOL/L (23-27); Allen Test Positive; Pt O2 Delivery Device Ventilator
[2019-05-31 05:37] LABS: Basophils % 0.1 % (0.0-0.8); Eosinophils % 0.1 % (0.00-10.9); Hematocrit 21.8 VOL% (35.7-47.0); Hemoglobin 6.8 GM/DL (12.0-16.0); Immature Granulocytes % 1.3 %; Immature Granulocytes Absolute 0.19 #; Lymphocytes # 0.2 10*3/uL (1.4-4.0); Lymphocytes % 1.3 % (21.3-54.2); Mean Corpuscular HGB Conc 31.2 GM/DL (32-36); Mean Corpuscular Volume 87.9 FL (87-102); Mean Platelet Volume 11.5 FL (9.6-12.0); Monocytes % 3.5 % (1.7-12.7); Neutrophils % 93.7 % (38.7-73.9); Platelet Count 331 T/CUMM (130-400); Red Blood Count 2.48 MC/CUMM (3.8-5.5); Red Cell Distribution Width 18.9 % (9.3-17.3); White Blood Count 14.2 T/CUMM (4-12)
[2019-05-31 05:51] LABS: Calcium 8.7 MG/DL (8.5-10.1); Osmolality,Calculated 312.7 MOS/KG (273-304)
[2019-05-31 06:07] LABS: Band Neutrophils 1 % (0-10); Hypochromasia 2+; Lymphocytes 2 % (20-55); Microcytosis 1+; Ovalocytes Slight; Platelet Estimate Adequate; Segmented Neutrophils 95 % (50-85); Total Cells Counted 100
[2019-05-31] MEDS: PANTOPRAZOLE 40 MG VIAL IV SCH (08:06)
[2019-05-31] MEDS: DICLOFENAC 1% GEL 100 GM TUBE TOP SCH ×3 (08:07→21:40)
[2019-05-31] MEDS: LACTATED RINGERS 1,000 ML IV SCH (08:25)
[2019-05-31] MEDS ORDERED: SODIUM CHLORIDE 0.9% 1,000 ML IV PRN (10:38)
[2019-05-31] MEDS: MINERAL OIL/PETROLATUM OPH OINT 3.5 GM TUBE BOTH EYES SCH ×2 (11:37→21:30)
[2019-05-31] MEDS: SKIN HEALING OINT (AQUAPHOR) 50 GM TUBE TOP SCH (11:38)
[2019-05-31] MEDS: VANCOMYCIN INJ 1,250 MG in SODIUM CHLORIDE 0.9% 250 ML IV SCH (15:27)
[2019-05-31] MEDS: ENOXAPARIN 80 MG/0.8 ML SYRINGE SUBCUT SCH (21:30)
[2019-05-31] MEDS: LEVOFLOXACIN INJ 750 MG in PREMIX 1 EACH IV SCH (21:30)
[2019-06-01] MEDS: HYDROmorphone INJ 50 MG in SODIUM CHLORIDE 0.9% 45 ML IV PRN (00:50)
[2019-06-01] MEDS: methylPREDNISolone SOD SUC 40 MG/1 ML VIAL IV SCH ×3 (01:45→16:45)
[2019-06-01] MEDS: INSULIN REGULAR 100 UNIT/ML SUBCUT SCH ×4 (02:35→17:22)
[2019-06-01 03:33] LABS: ABG Base Excess 3.3 MMOL/L (-2.5-2.5); ABG Oxygen Saturation 98.6 % (95-100); ABG PCO2 43.5 MM HG (35-48); ABG PH 7.427 (7.35-7.45); ABG PO2 199.3 MM HG (80-95); ABG TCO2 29.4 MMOL/L (23-27); Allen Test Positive; Pt O2 Delivery Device Ventilator
[2019-06-01 06:01] LABS: Basophils % 0.1 % (0.0-0.8); Eosinophils % 0.1 % (0.00-10.9); Hematocrit 24.1 VOL% (35.7-47.0); Hemoglobin 7.4 GM/DL (12.0-16.0); Immature Granulocytes % 1.6 %; Immature Granulocytes Absolute 0.19 #; Lymphocytes # 0.2 10*3/uL (1.4-4.0); Lymphocytes % 1.3 % (21.3-54.2); Mean Corpuscular HGB Conc 30.7 GM/DL (32-36); Mean Corpuscular Volume 88.3 FL (87-102); Mean Platelet Volume 11.3 FL (9.6-12.0); Monocytes % 4.7 % (1.7-12.7); Neutrophils % 92.2 % (38.7-73.9); Platelet Count 274 T/CUMM (130-400); Red Blood Count 2.73 MC/CUMM (3.8-5.5); Red Cell Distribution Width 18.2 % (9.3-17.3); White Blood Count 12.2 T/CUMM (4-12)
[2019-06-01] MEDS: MINERAL OIL/PETROLATUM OPH OINT 3.5 GM TUBE BOTH EYES SCH ×3 (06:16→20:30)
[2019-06-01 06:46] LABS: Hypochromasia 1+; Lymphocytes 1 % (20-55); Microcytosis Slight; Platelet Estimate Adequate; Segmented Neutrophils 97 % (50-85); Total Cells Counted 100
[2019-06-01 07:30] LABS: Calcium 8.8 MG/DL (8.5-10.1); Osmolality,Calculated 312.7 MOS/KG (273-304)
[2019-06-01] MEDS: PANTOPRAZOLE 40 MG VIAL IV SCH (08:36)
[2019-06-01] MEDS: SKIN HEALING OINT (AQUAPHOR) 50 GM TUBE TOP SCH (08:36)
[2019-06-01] MEDS: DICLOFENAC 1% GEL 100 GM TUBE TOP SCH ×3 (08:36→21:10)
[2019-06-01] MEDS: VANCOMYCIN INJ 1,250 MG in SODIUM CHLORIDE 0.9% 250 ML IV SCH (15:22)
[2019-06-01] MEDS: VANCOMYCIN INJ 1,000 MG in SODIUM CHLORIDE 0.9% 250 ML IV SCH (15:30)
[2019-06-01] MEDS: ENOXAPARIN 80 MG/0.8 ML SYRINGE SUBCUT SCH (21:07)
[2019-06-01] MEDS: LEVOFLOXACIN INJ 750 MG in PREMIX 1 EACH IV SCH (21:09)
[2019-06-02] MEDS: INSULIN REGULAR 100 UNIT/ML SUBCUT SCH ×5 (00:20→23:26)
[2019-06-02] MEDS: methylPREDNISolone SOD SUC 40 MG/1 ML VIAL IV SCH ×3 (01:12→16:50)
[2019-06-02 04:43] LABS: Basophils % 0.1 % (0.0-0.8); Eosinophils # 0.1 10*3/uL (0.0-0.87); Eosinophils % 0.4 % (0.00-10.9); Hematocrit 24.4 VOL% (35.7-47.0); Hemoglobin 7.6 GM/DL (12.0-16.0); Immature Granulocytes % 2.6 %; Immature Granulocytes Absolute 0.33 #; Lymphocytes # 0.2 10*3/uL (1.4-4.0); Lymphocytes % 1.3 % (21.3-54.2); Mean Corpuscular HGB Conc 31.1 GM/DL (32-36); Mean Corpuscular Volume 89.7 FL (87-102); Monocytes % 3.2 % (1.7-12.7); Neutrophils % 92.4 % (38.7-73.9); Platelet Count 205 T/CUMM (130-400); Red Blood Count 2.72 MC/CUMM (3.8-5.5); Red Cell Distribution Width 18.5 % (9.3-17.3); White Blood Count 12.7 T/CUMM (4-12)
[2019-06-02] MEDS: MINERAL OIL/PETROLATUM OPH OINT 3.5 GM TUBE BOTH EYES SCH ×3 (04:54→20:46)
[2019-06-02 05:04] LABS: Calcium 8.5 MG/DL (8.5-10.1)
[2019-06-02 05:14] LABS: Band Neutrophils 2 % (0-10); Hypochromasia 1+; Lymphocytes 2 % (20-55); Platelet Estimate Adequate; Segmented Neutrophils 94 % (50-85); Total Cells Counted 100
[2019-06-02 05:15] LABS: Microcytosis Slight
[2019-06-02] MEDS: HYDROmorphone INJ 50 MG in SODIUM CHLORIDE 0.9% 45 ML IV PRN ×2 (08:00→21:19)
[2019-06-02 08:45] LABS: ABG Base Excess 4.2 MMOL/L (-2.5-2.5); ABG Oxygen Saturation 85.7 % (95-100); ABG PCO2 51.6 MM HG (35-48); ABG PH 7.382 (7.35-7.45); ABG PO2 55.8 MM HG (80-95); ABG TCO2 31.6 MMOL/L (23-27)
[2019-06-02] MEDS: SKIN HEALING OINT (AQUAPHOR) 50 GM TUBE TOP SCH (09:00)
[2019-06-02] MEDS: DICLOFENAC 1% GEL 100 GM TUBE TOP SCH ×3 (09:00→20:46)
[2019-06-02] MEDS: PANTOPRAZOLE 40 MG VIAL IV SCH (09:00)
[2019-06-02] MEDS: VANCOMYCIN INJ 1,000 MG in SODIUM CHLORIDE 0.9% 250 ML IV SCH (16:30)
[2019-06-02] MEDS ORDERED: METOPROLOL TARTRATE 5 MG/5 ML VIAL IV ONE (18:11)
[2019-06-02] MEDS ORDERED: dilTIAZem Drip 125 MG/125 ML PREMIX IV PRN (18:11)
[2019-06-02] MEDS: LEVOFLOXACIN INJ 750 MG in PREMIX 1 EACH IV SCH (20:46)
[2019-06-02] MEDS: ENOXAPARIN 80 MG/0.8 ML SYRINGE SUBCUT SCH (20:46)
[2019-06-03] MEDS: methylPREDNISolone SOD SUC 40 MG/1 ML VIAL IV SCH ×3 (00:31→16:22)
[2019-06-03 04:57] LABS: ABG Base Excess 2.9 MMOL/L (-2.5-2.5); ABG Oxygen Saturation 99.4 % (95-100); ABG PCO2 43.6 MM HG (35-48); ABG PH 7.412 (7.35-7.45); ABG TCO2 26.1 MMOL/L (23-27); Allen Test Positive; Pt O2 Delivery Device Ventilator
[2019-06-03] MEDS: MINERAL OIL/PETROLATUM OPH OINT 3.5 GM TUBE BOTH EYES SCH ×3 (05:43→20:48)
[2019-06-03 05:48] LABS: Basophils % 0.1 % (0.0-0.8); Eosinophils % 0.3 % (0.00-10.9); Hematocrit 22.9 VOL% (35.7-47.0); Hemoglobin 7.3 GM/DL (12.0-16.0); Immature Granulocytes % 2.9 %; Immature Granulocytes Absolute 0.45 #; Lymphocytes # 0.1 10*3/uL (1.4-4.0); Lymphocytes % 0.6 % (21.3-54.2); Mean Corpuscular HGB Conc 31.9 GM/DL (32-36); Mean Corpuscular Volume 86.7 FL (87-102); Mean Platelet Volume 11.8 FL (9.6-12.0); Monocytes % 1.6 % (1.7-12.7); Neutrophils % 94.5 % (38.7-73.9); Platelet Count 160 T/CUMM (130-400); Red Blood Count 2.64 MC/CUMM (3.8-5.5); Red Cell Distribution Width 18.2 % (9.3-17.3); White Blood Count 15.5 T/CUMM (4-12)
[2019-06-03 05:56] LABS: Albumin 1.4 G/DL (3.4-5.0); Bilirubin,Total 1.2 MG/DL (0.2-1.0); Osmolality,Calculated 302.6 MOS/KG (273-304); Total Protein 5.7 G/DL (6.4-8.3)
[2019-06-03] MEDS: INSULIN REGULAR 100 UNIT/ML SUBCUT SCH ×3 (06:03→18:21)
[2019-06-03] MEDS: ACETAMINOPHEN 325 MG TABLET PO PRN ×3 (08:18→23:55)
[2019-06-03] MEDS: DICLOFENAC 1% GEL 100 GM TUBE TOP SCH ×3 (08:20→20:49)
[2019-06-03] MEDS: SKIN HEALING OINT (AQUAPHOR) 50 GM TUBE TOP SCH (08:20)
[2019-06-03] MEDS: PANTOPRAZOLE 40 MG VIAL IV SCH (08:21)
[2019-06-03 09:22] LABS: Band Neutrophils 9 % (0-10); Eosinophils 1 % (0-10); Hypochromasia 2+; Lymphocytes 1 % (20-55); Microcytosis 1+; Segmented Neutrophils 89 % (50-85); Total Cells Counted 100
[2019-06-03 09:23] LABS: Giant Platelets Few; Platelet Estimate Adequate; Polychromasia Slight
[2019-06-03] MEDS ORDERED: MICAFUNGIN 150 MG in SODIUM CHLORIDE 0.9% 100 ML IV SCH (17:00)
[2019-06-03] MEDS: ITRACONAZOLE 100 MG CAPSULE PO SCH (18:20)
[2019-06-03] MEDS: HYDROmorphone INJ 50 MG in SODIUM CHLORIDE 0.9% 45 ML IV PRN (19:00)
[2019-06-03] MEDS: ENOXAPARIN 80 MG/0.8 ML SYRINGE SUBCUT SCH (20:48)
[2019-06-03] MEDS: VANCOMYCIN INJ 1,000 MG in SODIUM CHLORIDE 0.9% 250 ML IV SCH (21:05)
[2019-06-04] MEDS: INSULIN REGULAR 100 UNIT/ML SUBCUT SCH ×4 (01:03→18:08)
[2019-06-04] MEDS: methylPREDNISolone SOD SUC 40 MG/1 ML VIAL IV SCH ×3 (01:12→16:43)
[2019-06-04 01:44] LABS: Apearance,Urine CLOUDY (Clear); Bacteria,Urine Many /HPF (Few); Bilirubin,Urine Negative (Negative); Blood, Urine Small mg/dL (Negative); Glucose,Urine (UA) Negative (Negative); Ketones,Urine Negative (Negative); Mucus,Urine Occasional /LPF (Occasional); Nitrite,Urine Negative (Negative); Protein,Urine 30 MG/DL; RBC,Urine 5 /HPF (0-4); Urine Color Yellow (Yellow); Urine Specific Gravity 1.012 (1.001-1.035); Urine Urobilinogen < 2.0 EU/DL (0.2-1.0); WBC,Urine 32 /HPF (0-6)
[2019-06-04 04:39] LABS: ABG Base Excess 1.5 MMOL/L (-2.5-2.5); ABG HCO3 25.7 MMOL/L (20-26); ABG Oxygen Saturation 94.8 % (95-100); ABG PCO2 43.9 MM HG (35-48); ABG PH 7.392 (7.35-7.45); ABG PO2 73.1 MM HG (80-95); ABG TCO2 24.1 MMOL/L (23-27); Allen Test Positive; Pt O2 Delivery Device Ventilator
[2019-06-04] MEDS: MINERAL OIL/PETROLATUM OPH OINT 3.5 GM TUBE BOTH EYES SCH ×3 (04:54→21:11)
[2019-06-04 05:52] LABS: Basophils # 0.1 10*3/uL (0.0-0.2); Basophils % 0.4 % (0.0-0.8); Eosinophils # 0.1 10*3/uL (0.0-0.87); Eosinophils % 0.5 % (0.00-10.9); Hematocrit 27.2 VOL% (35.7-47.0); Hemoglobin 8.9 GM/DL (12.0-16.0); Immature Granulocytes % 6.4 %; Immature Granulocytes Absolute 0.97 #; Lymphocytes # 0.2 10*3/uL (1.4-4.0); Lymphocytes % 1.6 % (21.3-54.2); Mean Corpuscular HGB Conc 32.7 GM/DL (32-36); Mean Platelet Volume 11.8 FL (9.6-12.0); Monocytes % 2.8 % (1.7-12.7); Neutrophils % 88.3 % (38.7-73.9); Platelet Count 134 T/CUMM (130-400); Red Blood Count 3.24 MC/CUMM (3.8-5.5); Red Cell Distribution Width 17.2 % (9.3-17.3); White Blood Count 15.2 T/CUMM (4-12)
[2019-06-04 06:25] LABS: Albumin 1.3 G/DL (3.4-5.0); Calcium 7.9 MG/DL (8.5-10.1); Total Protein 5.5 G/DL (6.4-8.3)
[2019-06-04 07:50] LABS: Band Neutrophils 18 % (0-10); Eosinophils 1 % (0-10); Hypochromasia 2+; Metamyelocytes 5 %; Segmented Neutrophils 73 % (50-85); Total Cells Counted 100
[2019-06-04 07:51] LABS: Burr Cells Slight; Microcytosis 2+; Ovalocytes Few; Platelet Estimate Adequate; Polychromasia Slight; Schistocytes Slight
[2019-06-04] MEDS: PANTOPRAZOLE 40 MG VIAL IV SCH (08:31)
[2019-06-04] MEDS: SKIN HEALING OINT (AQUAPHOR) 50 GM TUBE TOP SCH (08:32)
[2019-06-04] MEDS: DICLOFENAC 1% GEL 100 GM TUBE TOP SCH ×3 (08:32→21:11)
[2019-06-04] MEDS: ITRACONAZOLE 100 MG CAPSULE PO SCH (08:32)
[2019-06-04] MEDS: HYDROmorphone INJ 50 MG in SODIUM CHLORIDE 0.9% 45 ML IV PRN (13:04)
[2019-06-04] MEDS: ALBUMIN 25% 12.5 GM in PREMIX 1 EACH IV SCH ×3 (15:15→22:18)
[2019-06-04] MEDS: ENOXAPARIN 80 MG/0.8 ML SYRINGE SUBCUT SCH (21:11)
[2019-06-04] MEDS: VANCOMYCIN INJ 1,000 MG in SODIUM CHLORIDE 0.9% 250 ML IV SCH (22:28)
[2019-06-05] MEDS: INSULIN REGULAR 100 UNIT/ML SUBCUT SCH ×4 (00:18→17:59)
[2019-06-05] MEDS: methylPREDNISolone SOD SUC 40 MG/1 ML VIAL IV SCH ×3 (01:47→16:32)
[2019-06-05 04:35] LABS: ABG Base Excess -1.5 MMOL/L (-2.5-2.5); ABG HCO3 23.1 MMOL/L (20-26); ABG Oxygen Saturation 90.5 % (95-100); ABG PCO2 37.9 MM HG (35-48); ABG PH 7.394 (7.35-7.45); ABG PO2 58.8 MM HG (80-95); ABG TCO2 21.6 MMOL/L (23-27); Allen Test Positive; Pt O2 Delivery Device Ventilator
[2019-06-05] MEDS: MINERAL OIL/PETROLATUM OPH OINT 3.5 GM TUBE BOTH EYES SCH ×3 (05:35→20:29)
[2019-06-05 05:37] LABS: Basophils % 0.1 % (0.0-0.8); Eosinophils # 0.1 10*3/uL (0.0-0.87); Eosinophils % 0.4 % (0.00-10.9); Hematocrit 24.6 VOL% (35.7-47.0); Immature Granulocytes Absolute 0.57 #; Lymphocytes # 0.2 10*3/uL (1.4-4.0); Lymphocytes % 1.1 % (21.3-54.2); Mean Corpuscular HGB Conc 32.5 GM/DL (32-36); Mean Corpuscular Volume 85.4 FL (87-102); Mean Platelet Volume 12.1 FL (9.6-12.0); Monocytes % 1.6 % (1.7-12.7); Neutrophils % 92.8 % (38.7-73.9); Platelet Count 98 T/CUMM (130-400); Red Blood Count 2.88 MC/CUMM (3.8-5.5); Red Cell Distribution Width 17.6 % (9.3-17.3); White Blood Count 14.2 T/CUMM (4-12)
[2019-06-05 05:55] LABS: Albumin 1.4 G/DL (3.4-5.0); Bilirubin,Total 1.2 MG/DL (0.2-1.0); Calcium 7.9 MG/DL (8.5-10.1); Total Protein 5.5 G/DL (6.4-8.3)
[2019-06-05 06:03] LABS: Band Neutrophils 8 % (0-10); Hypochromasia 1+; Lymphocytes 1 % (20-55); Ovalocytes Slight; Platelet Estimate Decreased; Segmented Neutrophils 87 % (50-85); Total Cells Counted 100
[2019-06-05 06:04] LABS: Microcytosis 1+
[2019-06-05] MEDS: ALBUMIN 25% 12.5 GM in PREMIX 1 EACH IV SCH ×3 (06:28→22:21)
[2019-06-05] MEDS: SKIN HEALING OINT (AQUAPHOR) 50 GM TUBE TOP SCH (08:14)
[2019-06-05] MEDS: PANTOPRAZOLE 40 MG VIAL IV SCH (08:14)
[2019-06-05] MEDS: DICLOFENAC 1% GEL 100 GM TUBE TOP SCH ×3 (08:15→20:50)
[2019-06-05] MEDS: ITRACONAZOLE 100 MG CAPSULE PO SCH (08:15)
[2019-06-05] MEDS: cefTAZidime 1,000 MG in SYRINGE 1 EACH IV SCH (16:32)
[2019-06-05] MEDS: MORPHINE 4 MG/1 ML VIAL IV PRN (18:55)
[2019-06-05] MEDS: ENOXAPARIN 80 MG/0.8 ML SYRINGE SUBCUT SCH (20:50)
[2019-06-05] MEDS: ACETAMINOPHEN 325 MG TABLET PO PRN (20:51)
[2019-06-05] MEDS: HYDROmorphone INJ 50 MG in SODIUM CHLORIDE 0.9% 45 ML IV PRN (21:07)
[2019-06-06] MEDS: INSULIN REGULAR 100 UNIT/ML SUBCUT SCH ×4 (01:10→18:10)
[2019-06-06] MEDS: methylPREDNISolone SOD SUC 40 MG/1 ML VIAL IV SCH ×3 (01:34→16:40)
[2019-06-06 04:13] LABS: ABG Base Excess -4.7 MMOL/L (-2.5-2.5); ABG HCO3 20.4 MMOL/L (20-26); ABG Oxygen Saturation 90.1 % (95-100); ABG PCO2 36.5 MM HG (35-48); ABG PH 7.354 (7.35-7.45); ABG PO2 61.3 MM HG (80-95); ABG TCO2 18.4 MMOL/L (23-27); Allen Test Positive; Pt O2 Delivery Device Ventilator
[2019-06-06] MEDS: MINERAL OIL/PETROLATUM OPH OINT 3.5 GM TUBE BOTH EYES SCH ×3 (04:30→20:18)
[2019-06-06 04:53] LABS: Basophils % 0.2 % (0.0-0.8); Eosinophils # 0.1 10*3/uL (0.0-0.87); Eosinophils % 0.5 % (0.00-10.9); Hematocrit 21.8 VOL% (35.7-47.0); Hemoglobin 7.5 GM/DL (12.0-16.0); Immature Granulocytes % 4.4 %; Immature Granulocytes Absolute 0.87 #; Lymphocytes # 0.4 10*3/uL (1.4-4.0); Lymphocytes % 1.9 % (21.3-54.2); Mean Corpuscular HGB Conc 34.4 GM/DL (32-36); Mean Corpuscular Volume 81.3 FL (87-102); Monocytes % 1.7 % (1.7-12.7); NRBC # 0.02 10*3/uL; Neutrophils % 91.3 % (38.7-73.9); Platelet Count 75 T/CUMM (130-400); Red Blood Count 2.68 MC/CUMM (3.8-5.5); Red Cell Distribution Width 17.8 % (9.3-17.3); White Blood Count 19.9 T/CUMM (4-12)
[2019-06-06 05:11] LABS: Albumin 1.7 G/DL (3.4-5.0); Bilirubin,Total 2.2 MG/DL (0.2-1.0); Osmolality,Calculated 295.4 MOS/KG (273-304); Total Protein 5.8 G/DL (6.4-8.3)
[2019-06-06 05:13] LABS: Band Neutrophils 5 % (0-10); Eosinophils 1 % (0-10); Hypochromasia Slight; Lymphocytes 1 % (20-55); Microcytosis 1+; Platelet Estimate Decreased; Segmented Neutrophils 92 % (50-85); Total Cells Counted 100
[2019-06-06] MEDS: ALBUMIN 25% 12.5 GM in PREMIX 1 EACH IV SCH (06:28)
[2019-06-06] MEDS: PANTOPRAZOLE 40 MG VIAL IV SCH (08:47)
[2019-06-06] MEDS: SKIN HEALING OINT (AQUAPHOR) 50 GM TUBE TOP SCH (08:52)
[2019-06-06] MEDS: MULTIVITAMIN LIQUID (CENTRUM) 60 ML BOTTLE PO SCH (08:52)
[2019-06-06] MEDS: ITRACONAZOLE 100 MG CAPSULE PO SCH (08:53)
[2019-06-06] MEDS ORDERED: SODIUM CHLORIDE 0.9% 1,000 ML IV PRN (10:28)
[2019-06-06] MEDS: DICLOFENAC 1% GEL 100 GM TUBE TOP SCH ×3 (12:12→21:14)
[2019-06-06] MEDS ORDERED: diphenhydrAMINE 25 MG/10 ML UDCUP PO ONE (13:00)
[2019-06-06] MEDS ORDERED: ACETAMINOPHEN 325 MG/10.15 ML UDCUP PER TUBE ONE (13:00)
[2019-06-06] MEDS: HYDROmorphone INJ 50 MG in SODIUM CHLORIDE 0.9% 45 ML IV PRN (15:00)
[2019-06-06] MEDS: cefTAZidime 1,000 MG in SYRINGE 1 EACH IV SCH (16:38)
[2019-06-06] MEDS ORDERED: HYDROmorphone INJ 50 MG in SODIUM CHLORIDE 0.9% 45 ML IV SCH (17:08)
[2019-06-06] MEDS: ENOXAPARIN 80 MG/0.8 ML SYRINGE SUBCUT SCH (21:14)
[2019-06-07] MEDS: INSULIN REGULAR 100 UNIT/ML SUBCUT SCH ×4 (01:01→17:10)
[2019-06-07] MEDS: methylPREDNISolone SOD SUC 40 MG/1 ML VIAL IV SCH ×3 (01:50→17:10)
[2019-06-07 03:57] LABS: ABG Base Excess -5.7 MMOL/L (-2.5-2.5); ABG HCO3 19.7 MMOL/L (20-26); ABG Oxygen Saturation 94.7 % (95-100); ABG PCO2 38.4 MM HG (35-48); ABG PH 7.322 (7.35-7.45); ABG PO2 76.8 MM HG (80-95); ABG TCO2 18.6 MMOL/L (23-27); Allen Test Positive; Pt O2 Delivery Device Ventilator
[2019-06-07 04:26] LABS: Basophils % 0.2 % (0.0-0.8); Eosinophils % 0.2 % (0.00-10.9); Hemoglobin 6.7 GM/DL (12.0-16.0); Immature Granulocytes % 2.5 %; Immature Granulocytes Absolute 0.56 #; Lymphocytes # 0.8 10*3/uL (1.4-4.0); Lymphocytes % 3.8 % (21.3-54.2); Mean Corpuscular HGB Conc 35.3 GM/DL (32-36); Mean Corpuscular Volume 79.2 FL (87-102); Mean Platelet Volume 13.1 FL (9.6-12.0); Monocytes % 1.8 % (1.7-12.7); Neutrophils % 91.5 % (38.7-73.9); Platelet Count 54 T/CUMM (130-400); Red Cell Distribution Width 17.7 % (9.3-17.3); White Blood Count 22.3 T/CUMM (4-12)
[2019-06-07 04:47] LABS: Albumin 1.6 G/DL (3.4-5.0); Bilirubin,Total 2.7 MG/DL (0.2-1.0); Calcium 7.7 MG/DL (8.5-10.1); Osmolality,Calculated 297.8 MOS/KG (273-304); Total Protein 5.9 G/DL (6.4-8.3)
[2019-06-07 04:57] LABS: Band Neutrophils 12 % (0-10); Lymphocytes 3 % (20-55); Segmented Neutrophils 83 % (50-85); Total Cells Counted 100
[2019-06-07 04:58] LABS: Anisocytosis 1+; Burr Cells Slight; Hypochromasia 1+; Microcytosis 1+; Target Cells Few
[2019-06-07 04:59] LABS: Ovalocytes Slight; Platelet Estimate Decreased
[2019-06-07] MEDS: MINERAL OIL/PETROLATUM OPH OINT 3.5 GM TUBE BOTH EYES SCH ×3 (05:09→21:06)
[2019-06-07] MEDS: ACETAMINOPHEN 325 MG TABLET PO PRN ×2 (06:05→12:45)
[2019-06-07] MEDS: SKIN HEALING OINT (AQUAPHOR) 50 GM TUBE TOP SCH (08:15)
[2019-06-07] MEDS: MULTIVITAMIN LIQUID (CENTRUM) 60 ML BOTTLE PO SCH (08:15)
[2019-06-07] MEDS: DICLOFENAC 1% GEL 100 GM TUBE TOP SCH ×3 (08:15→21:06)
[2019-06-07] MEDS: PANTOPRAZOLE 40 MG VIAL IV SCH (08:15)
[2019-06-07] MEDS: ITRACONAZOLE 100 MG CAPSULE PO SCH (08:15)
[2019-06-07] MEDS ORDERED: SODIUM POLYSTYRENE SULFATE 15 GM/60 ML BOTTLE PO PRN (14:59)
[2019-06-07] MEDS: cefTAZidime 1,000 MG in SYRINGE 1 EACH IV SCH (15:42)
[2019-06-07 17:18] LABS: Hematocrit 21.7 VOL% (35.7-47.0); Hemoglobin 7.6 GM/DL (12.0-16.0)
[2019-06-07 17:58] VITALS: BP 105/63
[2019-06-07] MEDS ORDERED: SODIUM BICARBONATE 650 MG TABLET ONE (19:04)
[2019-06-07] MEDS: ENOXAPARIN 80 MG/0.8 ML SYRINGE SUBCUT SCH (21:06)
[2019-06-07] MEDS: SODIUM BICARBONATE 650 MG TABLET PO SCH (21:06)
[2019-06-07] MEDS: HYDROmorphone INJ 50 MG in SODIUM CHLORIDE 0.9% 45 ML IV PRN (21:12)
[2019-06-08] MEDS: INSULIN REGULAR 100 UNIT/ML SUBCUT SCH ×4 (00:54→18:02)
[2019-06-08] MEDS: methylPREDNISolone SOD SUC 40 MG/1 ML VIAL IV SCH ×3 (00:55→17:12)
[2019-06-08 04:03] LABS: Basophils % 0.1 % (0.0-0.8); Eosinophils # 0.1 10*3/uL (0.0-0.87); Eosinophils % 0.3 % (0.00-10.9); Hematocrit 22.8 VOL% (35.7-47.0); Hemoglobin 7.9 GM/DL (12.0-16.0); Immature Granulocytes % 2.8 %; Immature Granulocytes Absolute 0.46 #; Lymphocytes # 0.4 10*3/uL (1.4-4.0); Lymphocytes % 2.5 % (21.3-54.2); Mean Corpuscular HGB Conc 34.6 GM/DL (32-36); Mean Corpuscular Volume 81.1 FL (87-102); Monocytes % 1.3 % (1.7-12.7); Platelet Count 50 T/CUMM (130-400); Red Blood Count 2.81 MC/CUMM (3.8-5.5); Red Cell Distribution Width 17.2 % (9.3-17.3); White Blood Count 16.7 T/CUMM (4-12)
[2019-06-08 04:20] LABS: Albumin 1.6 G/DL (3.4-5.0); Bilirubin,Total 2.7 MG/DL (0.2-1.0); Calcium 7.7 MG/DL (8.5-10.1); Osmolality,Calculated 304.1 MOS/KG (273-304); Total Protein 5.9 G/DL (6.4-8.3)
[2019-06-08] MEDS: MINERAL OIL/PETROLATUM OPH OINT 3.5 GM TUBE BOTH EYES SCH ×3 (04:38→20:43)
[2019-06-08 04:48] LABS: Band Neutrophils 4 % (0-10); Burr Cells Slight; Eosinophils 1 % (0-10); Hypochromasia 1+; Ovalocytes Slight; Platelet Estimate Decreased; Segmented Neutrophils 93 % (50-85); Total Cells Counted 100
[2019-06-08 04:49] LABS: Microcytosis 1+
[2019-06-08 04:56] LABS: ABG Base Excess -8.2 MMOL/L (-2.5-2.5); ABG HCO3 17.1 MMOL/L (20-26); ABG Oxygen Saturation 94.7 % (95-100); ABG PCO2 33.8 MM HG (35-48); ABG PH 7.321 (7.35-7.45); ABG PO2 83.2 MM HG (80-95); ABG TCO2 18.1 MMOL/L (23-27); Allen Test Positive; Pt O2 Delivery Device Ventilator
[2019-06-08] MEDS: SODIUM BICARBONATE 650 MG TABLET PO SCH ×2 (08:16→20:44)
[2019-06-08] MEDS: SKIN HEALING OINT (AQUAPHOR) 50 GM TUBE TOP SCH (08:16)
[2019-06-08] MEDS: PANTOPRAZOLE 40 MG VIAL IV SCH (08:16)
[2019-06-08] MEDS: MULTIVITAMIN LIQUID (CENTRUM) 60 ML BOTTLE PO SCH (08:16)
[2019-06-08] MEDS: DICLOFENAC 1% GEL 100 GM TUBE TOP SCH ×3 (08:20→20:44)
[2019-06-08] MEDS: ITRACONAZOLE 100 MG CAPSULE PO SCH (08:21)
[2019-06-08] MEDS: HYDROmorphone INJ 50 MG in SODIUM CHLORIDE 0.9% 45 ML IV PRN (12:45)
[2019-06-08] MEDS: cefTAZidime 1,000 MG in SYRINGE 1 EACH IV SCH (15:47)
[2019-06-08] MEDS: ENOXAPARIN 80 MG/0.8 ML SYRINGE SUBCUT SCH (20:43)
[2019-06-09] MEDS: methylPREDNISolone SOD SUC 40 MG/1 ML VIAL IV SCH ×2 (00:15→08:19)
[2019-06-09] MEDS: INSULIN REGULAR 100 UNIT/ML SUBCUT SCH ×3 (00:19→11:20)
[2019-06-09] MEDS: MINERAL OIL/PETROLATUM OPH OINT 3.5 GM TUBE BOTH EYES SCH ×2 (03:55→11:20)
[2019-06-09 04:14] LABS: Basophils % 0.2 % (0.0-0.8); Eosinophils # 0.2 10*3/uL (0.0-0.87); Eosinophils % 0.9 % (0.00-10.9); Hematocrit 22.4 VOL% (35.7-47.0); Hemoglobin 7.9 GM/DL (12.0-16.0); Immature Granulocytes Absolute 0.35 #; Lymphocytes # 0.3 10*3/uL (1.4-4.0); Lymphocytes % 1.6 % (21.3-54.2); Mean Corpuscular HGB Conc 35.3 GM/DL (32-36); Mean Corpuscular Volume 80.3 FL (87-102); NRBC # 0.02 10*3/uL; Neutrophils % 94.3 % (38.7-73.9); Red Blood Count 2.79 MC/CUMM (3.8-5.5); Red Cell Distribution Width 17.4 % (9.3-17.3); White Blood Count 17.4 T/CUMM (4-12)
[2019-06-09 04:19] LABS: Platelet Count 30 T/CUMM (130-400)
[2019-06-09 04:23] LABS: Calcium 7.2 MG/DL (8.5-10.1); Osmolality,Calculated 309.2 MOS/KG (273-304)
[2019-06-09] MEDS: HYDROmorphone INJ 50 MG in SODIUM CHLORIDE 0.9% 45 ML IV PRN (04:41)
[2019-06-09 05:11] LABS: Lymphocytes 2 % (20-55); Segmented Neutrophils 97 % (50-85)
[2019-06-09 05:12] LABS: Burr Cells 3+; Platelet Estimate Decreased
[2019-06-09 05:13] LABS: Hypochromasia 1+; Ovalocytes 1+; Target Cells Few; Tear Drop Cells Few
[2019-06-09 05:15] LABS: Total Cells Counted 100
[2019-06-09 05:15] LABS: Allen Test Positive; Pt O2 Delivery Device Ventilator
[2019-06-09 05:16] LABS: ABG Base Excess -9.6 MMOL/L (-2.5-2.5); ABG HCO3 16.6 MMOL/L (20-26); ABG Oxygen Saturation 88.6 % (95-100); ABG PCO2 32.9 MM HG (35-48); ABG PH 7.296 (7.35-7.45); ABG PO2 62.2 MM HG (80-95); ABG TCO2 15.1 MMOL/L (23-27)
[2019-06-09] MEDS ORDERED: ROCURONIUM 500 MG in SODIUM CHLORIDE 0.9% 500 ML IV PRN (05:53)
[2019-06-09] MEDS: SODIUM BICARBONATE 650 MG TABLET PO SCH (08:20)
[2019-06-09] MEDS: ITRACONAZOLE 100 MG CAPSULE PO SCH (08:20)
[2019-06-09] MEDS: MULTIVITAMIN LIQUID (CENTRUM) 60 ML BOTTLE PO SCH (08:23)
[2019-06-09] MEDS: SKIN HEALING OINT (AQUAPHOR) 50 GM TUBE TOP SCH (08:23)
[2019-06-09] MEDS: DICLOFENAC 1% GEL 100 GM TUBE TOP SCH (08:24)
[2019-06-09] MEDS ORDERED: LORazepam 2 MG/1 ML VIAL IV ONE ×2 (08:24→08:36)
[2019-06-09] MEDS: PANTOPRAZOLE 40 MG VIAL IV SCH (08:25)
[2019-06-09] MEDS ORDERED: LORazepam 2 MG/1 ML VIAL ONE ×2 (08:26→08:37)
[2019-06-09] MEDS: MORPHINE 4 MG/1 ML VIAL IV PRN (08:30)
[2019-06-09] MEDS: ROCURONIUM 500 MG in SODIUM CHLORIDE 0.9% 500 ML IV SCH (10:49)
== END 2019-06-09 12:12 | disposition expired | DRG 207 ==
LOC: N.ED 08:48 → N.EDINP 11:20 → SUATTDRO 11:20 → N.2E 12:01 → N.TELES 15:36 → N.2E 19:57 → N.ICU 05-24 05:02 → N.CC 05-26 18:42
PROVIDERS: ADMIT Family Medicine; ATTEND Internal Medicine